=== PATIENT | female | born 1975 | race Caucasian/White ===

== ENCOUNTER → 2019-05-25 | Outpatient (CLI) | payer OTHER ==
[2019-05-25 16:13] LABS: Basophils % (A) 0 %; Eosinophils # (A) 0.1 k/uL (0-0.7); Eosinophils % (A) 1 %; HCT 37.1 % (34.0-46.0); HGB 12.2 gm/dL (11.4-16.0); Lymphocytes % (A) 28 %; MCH 27.1 pg (25.0-35.0); MCHC 32.7 g/dL (31.0-37.0); MCV 82.7 fL (80.0-100.0); Mean Platelet Volume 7.4; Monocytes # (A) 0.4 k/uL (0-1.0); Monocytes % (A) 6 %; Neutrophils # (A) 4.6 k/uL (1.3-7.7); Neutrophils % (A) 63 %; Platelet Count 265 k/uL (150-450); RBC 4.49 m/uL (3.80-5.40); RDW 13.7 % (11.5-15.5); WBC 7.2 k/uL (3.8-10.6)
== END | disposition home or self-care (01) ==
LOC: LABPAT 15:24
PROVIDERS: ATTEND Obstetrics & Gynecology
DX: Z01.812 Encounter for preprocedural laboratory examination (principal); N92.0 Excessive and frequent menstruation with regular cycle; D25.9 Leiomyoma of uterus, unspecified
CPT/HCPCS: 36415; 85025

== ENCOUNTER 2019-06-08 07:42 | Day surgery (SDC) | payer OTHER ==
[2019-06-01 10:54] VITALS: BMI 34.7
[~2019-06-08 07:42] MED LIST: DEXAMETHASONE SOD PHOSPHATE 10 MG/ML 1 ML VIAL IV ONE; HYDROmorphone 0.5 MG/0.5 ML SYRINGE IVP PRN; LACTATED RINGERS 1,000 ML IV SCH; LIDOCAINE 1% 20 ML VIAL (10MG/ML) FOR IV START INTRADERMA PRN; MIDAZOLAM 2 MG/2 ML VIAL IV PRN; ONDANSETRON 4 MG/2 ML VIAL IVP ONE; Pre Op ABX Message 1 EACH MISC MISCELLANE ONE; SCOPOLAMINE 1.5MG/72HR PATCH TRANSDERM ONE
[2019-06-08] MEDS ORDERED: PROPOFOL 10 MG/ML 20 ML VIAL IV ONE (08:34)
[2019-06-08] MEDS ORDERED: fentaNYL (PF) 50 MCG/ML 2 ML AMP ONE (08:34)
[2019-06-08] MEDS ORDERED: LIDOCAINE 1% INJ 10MG/ML (20 ML MDV) ONE (08:34)
[2019-06-08] MEDS ORDERED: MIDAZOLAM 2 MG/2 ML VIAL ONE (08:34)
--- NOTE | 2019-06-08 09:11 | P.OP ---
Date of Procedure: 06/08/19 Preoperative Diagnosis: Menorrhagia, fibroid uterus Postoperative Diagnosis: Same, normal-appearing endometrial cavity Procedure(s) Performed: Hysteroscopy, NovaSure endometrial ablation Surgeon: Paola Santos Estimated Blood Loss (ml): 5 IV fluids (ml): 300 Urine output (ml): 25 Pathology: none sent Condition: stable Disposition: PACU Operative Findings: Essentially normal-appearing endometrial cavity. Slightly misshapen fibroid uterus to pelvic exam. Description of Procedure: Patient is brought to the operating suite where a general anesthetic is administered without difficulty. The appropriate timeout was performed to assure proper patient and procedural identification. Urine hCG is negative, antibiotics are not deemed necessary. Examination under anesthesia reveals an anteverted uterus that is slightly irregular in contour, negative adnexa bilaterally. The perineal body, cervix, and vagina are all prepped and draped in the usual sterile fashion. Bladder is drained for 25 mL of clear yellow urine. Weighted speculum was placed into the vagina. The anterior lip of the cervix is grasped with an Allis clamp. The uterus sounds to a depth of 9.5 cm in the anteverted position. The cervix was gently and systematically dilated with Primitivo dilators. The hysteroscope was introduced and the cavity is distended with sterile saline. Inspection of the cavity reveals shaggy-appearing tissue, no fibroids, no polyps, no defects. Hysteroscope was removed. NovaSure wand is then placed and seated properly. Uterine length of 6.5 cm, width of 4.2 cm is calibrated to the machine and the machine is enabled. For 53 seconds and a power the 150 W the procedure is carried out. When the machine shuts off the wand is reduced and removed. Hysteroscope was once again introduced. The cavity appears uniformly blanched. Hysteroscope was removed. All sponge needle and enhancement counts are correct. Patient is brought back to the recovery room in very good condition with stable vital signs including a blood pressure of 110/54, pulse 80. All firm as is given in the recovery room after the procedure, patient has history of an untoward effect to Toradol administration. Written instructions are provided. She will follow-up with me in the office in 2 weeks for postoperative check.
[2019-06-08] MEDS ORDERED: ACETAMINOPHEN IV (For NPO) 1,000 MG/100 ML VIAL IVPB ONE (09:15)
[2019-06-08 09:17] VITALS: TEMP 97.2
[2019-06-08] MEDS ORDERED: IBUPROFEN 200 MG TAB PO ONE (10:35)
[2019-06-08 10:58] VITALS: BP 121/76; PULSE 83; RESP 16
== END 2019-06-08 11:10 | disposition home or self-care (01) ==
LOC: OR 07:42
PROVIDERS: ATTEND Obstetrics & Gynecology
DX: N92.0 Excessive and frequent menstruation with regular cycle (principal); D25.9 Leiomyoma of uterus, unspecified; Z88.6 Allergy status to analgesic agent; Z90.49 Acquired absence of other specified parts of digestive tract; Z90.89 Acquired absence of other organs; Z98.84 Bariatric surgery status; Z98.51 Tubal ligation status; Z87.891 Personal history of nicotine dependence; Z80.8 Family history of malignant neoplasm of other organs or systems
CPT/HCPCS: 81025; 58563; J2250; J1100; J2405; J2001; J3010; J0131; J2704

== ENCOUNTER → 2019-08-25 | Outpatient (CLI) | payer OTHER ==
--- NOTE | 2019-08-25 14:08 | FL ---
EXAMINATION TYPE: FL barium swallow DATE OF EXAM: 08/25/2019 CLINICAL HISTORY: Gastric lap band placed into thousand 4. Right upper quadrant pain and nausea for 2 months. However when the patient describes and identifies the pain is located in the right lower linden drant. TECHNIQUE: A single contrast esophagram is performed utilizing thin barium. A total of 1 minute and 52 seconds of fluoroscopic time was utilized during procedure. 34 fluoroscopic images were saved. COMPARISON: None FINDINGS: A research and development manager image demonstrates a normal Phi angle 45 degrees. The esophagus shows normal motili ty and emptying into the stomach. There is prompt passage of contrast from the distal esophagus into the stomach with no gastroesophageal reflux seen. No evidence of hiatal hernia or stricture noted. IMPRESSION: No evidence of gastric lap band slippage or obstruction. Under fluoroscopy the patient d escribes pain in the right lower quadrant.
[2019-08-25 14:12] VITALS: BP 132/84; PULSE 82; RESP 16; TEMP 98.3; BMI 34.2
--- NOTE | 2019-08-25 14:43 | P.BASOAP ---
Subjective Progress Note Date: 08/25/19 Principal diagnosis: Abdominal pain 43-year-old female known to our service. She has not seen me in many years. She had her lap band placed at [facility] approximately 15 years ago. She contacted us this morning complaining of upper abdominal pain. Some nausea but no vomiting. No dysphasia. Denies fevers or chills. No diarrhea or constipation. No rectal bleeding or melena. Patient was concerned the pain may be related to her lap band. A fluoroscopy esophagram was ordered when she arrived. That study was reviewed. No definite abnormalities are identified. Pain is actually being described in the right lower and right upper quadrants. History of previous cholecystectomy. Pain began approximately 2 days ago. Pain does seem to be aggravated by drinking more liquids. Otherwise food does not seem to be causing any difficulty. Objective - Vital Signs Vital signs: Vital Signs Temp 98.3 F 08/25/19 14:07 Pulse 82 08/25/19 14:07 Resp 16 08/25/19 14:07 BP 132/84 08/25/19 14:07 Pulse Ox Intake & Output 08/24/19 08/25/19 08/25/19 18:59 06:59 18:59 Weight 92.079 kg - Exam Abdomen: Soft, nondistended, tenderness right mid and lower quadrants, no rebound or guarding Assessment/Plan (1) Right sided abdominal pain Narrative/Plan: 43-year-old female with pain in right upper and right lower quadrants. Rule out appendicitis versus other etiologies. Patient with history of previous cholecystectomy. We'll perform CT abdomen and pelvis with contrast. Further recommendations to follow. She and I discussed emptying the band however she is having no dysphagia or vomiting. She would prefer not to empty the band unless necessary. Plan: Date: 08/25/19 Initial Weight: 151.953 kg Initial BMI: 56.6 Current Weight: 92.079 kg Current BMI: 34.2 Type of Surgery: Total Volume in Band: Previous Volume: Volume Removed: Volume Added: Band Size:
== END | disposition home or self-care (01) ==
LOC: BARWHC3 12:20
PROVIDERS: ATTEND Surgery
DX: R10.11 Right upper quadrant pain (principal); R10.31 Right lower quadrant pain; Z90.49 Acquired absence of other specified parts of digestive tract
CPT/HCPCS: 74220; G0463; 99211

== ENCOUNTER → 2019-08-25 | Outpatient (CLI) | payer OTHER ==
--- NOTE | 2019-08-25 18:58 | CT ---
EXAMINATION TYPE: CT abdomen pelvis wo con DATE OF EXAM: 08/25/2019 COMPARISON: None HISTORY: abdominal pain CT DLP: 984 mGycm Automated exposure control for dose reduction was used. Multiple axial sections were obtained from the diaphragm to the floor the pelvis with oral contrast o nly. Lung bases are clear. There is no pleural effusion. There is bariatric gastric surgery. Liver is inta ct. Spleen is intact. There is no pancreatic mass. There are clips from cholecystectomy. There is no adrenal mass. Kidneys show normal size and contour.. There is no hydronephrosis. Ureters are not dilated. There is no retroperitoneal adenopathy. Bladder distends smoothly. Uterus is antever maycol. There is no free fluid in the pelvis. There is no inguinal hernia. Appendix is not seen. No sign of thickened appendix. There is no mesenteric edema. There is no ascites or free air. There is no sign of a bowel obstructio n. Lumbar vertebra have normal alignment. Disc spaces are fairly normal. There is slight narrowing at L4-5 disc. Bony pelvis appears intact. There is no evidence of a fracture. Hip joints appear normal. IMPRESSION: Negative CT scan abdomen and pelvis.
== END | disposition home or self-care (01) ==
LOC: RADCTMAIN 15:41
PROVIDERS: ATTEND Surgery
DX: R10.9 Unspecified abdominal pain (principal)
CPT/HCPCS: 74176

== ENCOUNTER 2019-09-14 09:28 | Day surgery (SDC) | payer OTHER ==
[2019-09-09 10:52] VITALS: BMI 34.2
[~2019-09-14 09:28] MED LIST changes: -DEXAMETHASONE SOD PHOSPHATE 10 MG/ML 1 ML VIAL IV ONE; -HYDROmorphone 0.5 MG/0.5 ML SYRINGE IVP PRN; +LIDOCAINE 1% (10MG/ML) FOR IV START INTRADERMA PRN; -LIDOCAINE 1% 20 ML VIAL (10MG/ML) FOR IV START INTRADERMA PRN; -MIDAZOLAM 2 MG/2 ML VIAL IV PRN; -ONDANSETRON 4 MG/2 ML VIAL IVP ONE; -Pre Op ABX Message 1 EACH MISC MISCELLANE ONE; -SCOPOLAMINE 1.5MG/72HR PATCH TRANSDERM ONE
[2019-09-14 09:58] VITALS: RESP 16; TEMP 98.4
[2019-09-14] MEDS ORDERED: PROPOFOL 10 MG/ML 20 ML VIAL IV ONE (10:57)
[2019-09-14] MEDS ORDERED: LIDOCAINE 1% INJ 10MG/ML (20 ML MDV) ONE (10:57)
--- NOTE | 2019-09-14 11:02 | P.GSHP ---
History of Present Illness H&P Date: 09/14/19 Chief Complaint: Abdominal pain Patient here today for upper endoscopy has had complaints of upper abdominal and right upper quadrant pain. Pain is stabbing at times. Was having some dysphagia but that has resolved. No significant reflux symptoms. She has a lap band placed many years ago. Past Medical History Additional Past Medical History / Comment(s): Lap Band., Past hx heavy periods & uterine fibroids (uterine ablation), pericarditis, hx htn (no problem now), "arrythmia when young", having some abdominal pain and difficulty swallowing. History of Any Multi-Drug Resistant Organisms: None Reported Past Surgical History: Bariatric Surgery, Section, Cholecystectomy, Tonsillectomy, Uterine Ablation Additional Past Surgical History / Comment(s): lap band 2004, D&C x4, EGD, wisdom teeth, Uterine Ablation (May 2019) Past Anesthesia/Blood Transfusion Reactions: Previous Problems w/ Anesthesia, Motion Sickness Additional Past Anesthesia/Blood Transfusion Reaction / Comment(s): woke up during wisdom teeth removal Past Psychological History: No Psychological Hx Reported Smoking Status: Former smoker Past Alcohol Use History: None Reported Additional Past Alcohol Use History / Comment(s): smoked approx 7 yrs 1 pack/week quit age 24 Past Drug Use History: None Reported - Past Family History Brother(s) Family Medical History: Cancer Additional Family Medical History / Comment(s): brain ca Sister(s) Family Medical History: Cancer, Thyroid Disorder Additional Family Medical History / Comment(s): skin cancer Medications and Allergies Home Medications Medication Instructions Recorded Confirmed Type Vitamin B Complex 1 each PO DAILY 06/01/19 09/14/19 History Cholecalciferol [Vitamin D3 (25 10,000 unit PO DAILY 09/09/19 09/14/19 History Mcg = 1000 Iu)] Magnesium 350 mg PO DAILY 09/09/19 09/14/19 History Naproxen Sodium [Aleve] 440 mg PO ONCE PRN 09/09/19 09/14/19 History Vitamin C/Biotin [Hair, Skin and 1 tab PO DAILY 09/09/19 09/14/19 History Nails] Allergies Allergy/AdvReac Type Severity Reaction Status Date / Time ketorolac [From Toradol] Allergy made me Verified 09/09/19 10:29 "jittery" Surgical - Exam Vital Signs Temp Pulse Resp BP Pulse Ox 98.4 F 80 16 134/61 100 09/14/19 09:57 09/14/19 09:57 09/14/19 09:57 09/14/19 09:57 09/14/19 09:57 Physical exam: General: Well-developed, well-nourished HEENT: Normocephalic, sclerae nonicteric Abdomen: Nontender, nondistended Extremities: No edema Neuro: Alert and oriented Assessment and Plan (1) Epigastric pain Narrative/Plan: Will proceed with upper endoscopy. Current Visit: Yes Status: Acute Code(s): R10.13 - EPIGASTRIC PAIN SNOMED Code(s): 58702861
--- NOTE | 2019-09-14 11:11 | P.PCN ---
Date of Procedure: 09/14/19 Procedure(s) Performed: Preoperative Dx: Abdominal pain Postoperative Dx: Mild gastritis Procedure: EGD with Bx Anesthesia: Sedation Endoscopist: Dr. Juarez Specimens: Antrum Endoscopic Procedure: The patient was on the endoscopy table in the left decubitus position. The Olympus gastroscope was inserted into the oropharynx and passed under direct visualization to the region of the third portion of the duodenum. From that point the scope was slowly withdrawn inspecting all surfaces carefully. There were no neoplastic inflammatory or polypoid lesions throughout the duodenum. The pylorus was widely patent. The stomach was carefully inspected. There was gastritis. A biopsy of the antrum took place to rule out H. pylori. Retroflexion revealed a normal band plication. There was no evidence of erosion or prolapse. The scope was able to pass through the band site without difficulty. The esophagus was then carefully examined. There were no neoplastic inflammatory or polypoid lesions throughout the visualized esophagus. The patient was then taken to the recovery room in stable condition per anesthesia guidelines. Recommendations: Await biopsy results. Continue workup abdominal pain. We'll consider emptying the patient's band given her ongoing symptoms. Not convinced that will have any impact however given the primary pain being in the right upper quadrant.
[2019-09-14 11:30] VITALS: BP 128/78; PULSE 76
== END 2019-09-14 11:54 | disposition home or self-care (01) ==
LOC: ORWHC2ENDO 09:28
PROVIDERS: ATTEND Surgery
DX: K29.50 Unspecified chronic gastritis without bleeding (principal); I10 Essential (primary) hypertension; Z98.84 Bariatric surgery status; Z90.49 Acquired absence of other specified parts of digestive tract; Z90.89 Acquired absence of other organs; Z98.890 Other specified postprocedural states; Z98.818 Other dental procedure status; Z87.891 Personal history of nicotine dependence; Z79.899 Other long term (current) drug therapy; Z88.6 Allergy status to analgesic agent; Z98.51 Tubal ligation status; Z80.8 Family history of malignant neoplasm of other organs or systems
CPT/HCPCS: 81025; 88305; 43239; J2001; J2704

== ENCOUNTER → 2021-06-21 | Outpatient (CLI) | payer BC, OTHER ==
--- NOTE | 2021-06-21 14:11 | FL ---
SINGLE CONTRAST ESOPHAGRAM: CLINICAL HISTORY: 45-year-old female. R13.10, dysphagia TECHNIQUE: Single contrast exam utilizing thin barium. Total fluoroscopy time: 54 seconds. Total images: 22. FINDINGS: The patient swallowed oral contrast without difficulty or delay. There is normal course, caliber, and overall motility of the thoracic esophagus. There is prompt passage of contrast across the GE juncti on. LAP-BAND device is visualized and is appropriately positioned. There is prompt passage across the lap band without any significant restriction. IMPRESSION: Patent and appropriately positioned lap band. No significant restriction is seen to thin barium.
== END | disposition home or self-care (01) ==
LOC: RADUSWWP 13:13
PROVIDERS: ATTEND Surgery
DX: R13.10 Dysphagia, unspecified (principal)
CPT/HCPCS: 74220

== ENCOUNTER → 2021-07-24 | Outpatient (CLI) | payer BC, OTHER ==
[2021-07-24 19:16] LABS: Basophils # (A) 0.04 X 10*3/uL (0.00-0.10); Basophils % (A) 0.6 %; Eosinophils % (A) 1.4 %; HCT 39.9 % (37.2-46.3); HGB 12.4 g/dL (12.0-15.0); Lymphocytes # (A) 2.07 X 10*3/uL (0.90-5.00); MCH 26.8 pg (27.0-32.0); MCHC 31.1 g/dL (32.0-37.0); MCV 86.2 fL (80.0-97.0); Mean Platelet Volume 11.8 fL (9.5-12.2); Monocytes # (A) 0.54 X 10*3/uL (0.20-1.00); Monocytes % (A) 7.6 %; Neutrophils # (A) 4.38 X 10*3/uL (1.80-7.70); Neutrophils % (A) 61.1 %; Platelet Count 245 X 10*3/uL (140-440); RBC 4.63 X 10*6/uL (4.10-5.20); RDW 14.6 % (11.5-14.5); WBC 7.15 X 10*3/uL (4.50-10.00)
[2021-07-24 19:24] LABS: ALT 8 U/L (8-44); AST 13 U/L (13-35); African American GFR (CKD) 129.2 (60.0-200.0); Albumin 3.7 g/dL (3.8-4.9); Albumin/Globulin Ratio 1.68 (1.60-3.17); Alkaline Phosphatase 32 U/L (41-126); BUN/Creat Ratio 16.92 Ratio (12.00-20.00); Blood Urea Nitrogen 9.6 mg/dL (9.0-27.0); Calcium 8.7 mg/dL (8.7-10.3); Carbon Dioxide 25.6 mmol/L (20.0-27.5); Chloride 105 mmol/L (96-109); Globulin 2.2 g/dL (1.6-3.3); Glucose 81 mg/dL (70-110); Non-African American GFR(CKD) 111.5 (60.0-200.0); Potassium 4.2 mmol/L (3.5-5.5); Sodium 138 mmol/L (135-145); Total Bilirubin <0.20 mg/dL (0.30-1.20); Total Protein 5.9 g/dL (6.2-8.2)
== END | disposition home or self-care (01) ==
LOC: LABPAT 11:31
PROVIDERS: ATTEND Surgery
DX: Z01.812 Encounter for preprocedural laboratory examination (principal)
CPT/HCPCS: 36415; 80053; 85025; 93005

== ENCOUNTER 2021-08-21 10:02 | Day surgery (SDC) | payer BC, OTHER ==
[2021-08-14 12:37] VITALS: BMI 28.7
--- NOTE | 2021-08-21 09:58 | P.GSHP ---
History of Present Illness H&P Date: 08/21/21 Chief Complaint: Band intolerance 45-year-old female known to our service. Patient here today for elective lap band removal. Patient has had complaints of upper abdominal pain and intermittent dysphagia and vomiting. Previous EGD and upper GI shows no definite abnormalities. Past Medical History Past Medical History: Hypertension Additional Past Medical History / Comment(s): Lap Band ., hx heavy periods & uterine fibroids with uterine ablation, pericarditis (in her 20's)., htn resolved with wt loss, vegetarian., states food backs up and occasional stomach pain. History of Any Multi-Drug Resistant Organisms: None Reported Past Surgical History: Bariatric Surgery, Section, Cholecystectomy, Tonsillectomy, Uterine Ablation Additional Past Surgical History / Comment(s): lap band 2004, D&C x4, EGD, wisdom teeth, Uterine Ablation (May 2019) Past Anesthesia/Blood Transfusion Reactions: Previous Problems w/ Anesthesia, Motion Sickness Additional Past Anesthesia/Blood Transfusion Reaction / Comment(s): . Past Psychological History: No Psychological Hx Reported Smoking Status: Former smoker Past Alcohol Use History: None Reported Additional Past Alcohol Use History / Comment(s): smoked approx 7 yrs 1 pack/week quit age 24 Past Drug Use History: None Reported - Past Family History Brother(s) Family Medical History: Cancer Additional Family Medical History / Comment(s): brain ca Sister(s) Family Medical History: Cancer, Thyroid Disorder Additional Family Medical History / Comment(s): skin cancer Medications and Allergies Home Medications Medication Instructions Recorded Confirmed Type Vitamin B Complex 1 each PO DAILY 06/01/19 08/14/21 History Cholecalciferol [Vitamin D3 (25 10,000 unit PO DIRECTED 09/09/19 08/14/21 History Mcg = 1000 Iu)] Ascorbic Acid [Vitamin C] 1,000 mg PO DAILY 08/14/21 08/14/21 History Biotin 10,000 mcg PO DAILY 08/14/21 08/14/21 History Calcium/Magnesium/Zinc 1 each PO DAILY 08/14/21 08/14/21 History [Ilzwcqw-Dmeynbufj-Joiq Tablet] Elderberry 1 dose PO DAILY 08/14/21 History L.acidoph,Paracasei, B.lactis 1 each PO DAILY 08/14/21 08/14/21 History [Probiotic] Multivitamin Supplement Liquid 1 dose PO DAILY 08/14/21 History Potassium 99 mg PO DAILY 08/14/21 History Allergies Allergy/AdvReac Type Severity Reaction Status Date / Time ketorolac [From Toradol] Allergy made me Verified 08/14/21 11:48 "jittery" Surgical - Exam Physical exam: General: Well-developed, well-nourished HEENT: Normocephalic, sclerae nonicteric Abdomen: Nontender, nondistended Extremities: No edema Neuro: Alert and oriented Assessment and Plan (1) Epigastric pain Narrative/Plan: Will proceed with laparoscopic lap band removal, possible open. The risks of bleeding, infection, stenosis, stricture, leak, abscess, fistula formation, peritonitis, weight gain, reflux, vomiting, conversion to an open procedure, RI, PE, DVT, and were discussed. The patient understands and wishes to proceed. Status: Acute Code(s): R10.13 - EPIGASTRIC PAIN SNOMED Code(s): 55276482
[~2021-08-21 10:02] MED LIST changes: +DEXAMETHASONE SOD PHOSPHATE 4 MG/ML 1 ML VIAL IV ONE; +HYDROmorphone 0.5 MG/0.5 ML SYRINGE IVP PRN; +ONDANSETRON 4 MG/2 ML VIAL IVP ONE; +SCOPOLAMINE 1.5MG/72HR PATCH TRANSDERM ONE
[2021-08-21] MEDS ORDERED: SUCCINYLCHOLINE CHLORIDE 100 MG/5 ML SYR IV ONE (11:45)
[2021-08-21] MEDS ORDERED: NEOSTIGMINE 1 MG/ML 10 ML VIAL ONE (11:45)
[2021-08-21] MEDS ORDERED: GLYCOPYRROLATE 0.2 MG/ML 2 ML VIAL ONE (11:45)
[2021-08-21] MEDS ORDERED: MIDAZOLAM 2 MG/2 ML VIAL ONE (11:45)
[2021-08-21] MEDS ORDERED: ROCURONIUM 10 MG/ML (5 ML VIAL) IV ONE (11:45)
[2021-08-21] MEDS ORDERED: fentaNYL (PF) 50 MCG/ML 2 ML AMP ONE (11:45)
[2021-08-21] MEDS ORDERED: LIDOCAINE 1% INJ 10MG/ML (20 ML MDV) ONE (11:45)
[2021-08-21] MEDS ORDERED: PROPOFOL 10 MG/ML 20 ML VIAL IV ONE (11:45)
[2021-08-21] MEDS ORDERED: BUPIVACAINE (PF) 0.25% 30 ML VIAL SQ ONE ×2 (12:23→13:02)
[2021-08-21 13:22] VITALS: TEMP 97.3
[2021-08-21] MEDS ORDERED: HYDROcodone/APAP 5-325MG 1 EACH TAB PO PRN (13:23)
[2021-08-21] MEDS ORDERED: NALOXONE 0.4 MG/ML 1 ML VIAL IV PRN (13:23)
--- NOTE | 2021-08-21 13:29 | P.OP ---
Date of Procedure: 08/21/21 Procedure(s) Performed: PREOPERATIVE DIAGNOSIS: Band intolerance/abdominal pain POSTOPERATIVE DIAGNOSIS: Same PROCEDURE: Laparoscopic lap band removal with lysis of adhesions SURGEON: Ann EBL: Minimal ANESTHESIA: General COMPLICATIONS: None OPERATIVE PROCEDURE: The patient was brought and placed on the operating room table in the supine position. The patient was placed under general anesthesia at that time. The patient was then placed in lithotomy. The abdomen was prepped and draped in the usual sterile fashion. The previous left lateral upper quadrant port incision was localized and then incised using a scalpel. The port was easily excised using electrocautery. Entrance into the peritoneal cavity occurred using a 5 mm optical trocar through a new incision in the epigastrium. Insufflation took place to 15 mmHg. A right subxiphoid 5 mm trocar was placed. This was then removed and the medium Angelica hook was used to elevate the left lobe of the liver anteriorly. An additional 5 mm trocar was placed under direct visualization in the right upper quadrant. A 15 mm trocar was then placed to the previous port incision site in the left upper quadrant. The patient had adhesions between the omentum and the abdominal wall. These were present in both the left upper and right upper quadrants. Patient had recent complaints of pain in the right upper quadrant. These adhesions were divided using electrocautery in the hopes that this would help with the patient's right upper quadrant discomfort. Some of the adhesions in the left upper quadrant were lysed as well. The band was inspected. There was some adherence to the liver. There were adhesions to the band in the buccal that were lysed using electrocautery. The band was then cut using the laparoscopic royal. The band was then removed in 2 portions through the 15 mm trocar site. The band itself was somewhat adherent to the serosa of the stomach and the capsule. The Kitner was used to help free up some of these loose adhesions. The stomach itself was inspected and revealed no evidence of erosion or prolapse. The fascia at the 15 mm site was closed using a [id number] 0 Vicryl stitch. The subcutaneous tissues at the port site was closed using a 3-0 Vicryl suture. The skin at all 4 incision sites were closed using 4-0 Monocryl sutures. Skin glue was then applied. DISPOSITION: Stable to recovery room
[2021-08-21 15:25] VITALS: PULSE 90; RESP 16
[2021-08-21 15:50] VITALS: BP 111/75
== END 2021-08-21 16:19 | disposition home or self-care (01) ==
LOC: OR 10:02
PROVIDERS: ATTEND Surgery
DX: K95.09 Other complications of gastric band procedure (principal); K66.0 Peritoneal adhesions (postprocedural) (postinfection); Z87.42 Personal history of other diseases of the female genital tract; I10 Essential (primary) hypertension; Z98.891 History of uterine scar from previous surgery; Z90.49 Acquired absence of other specified parts of digestive tract; Z98.890 Other specified postprocedural states; Z87.891 Personal history of nicotine dependence; Z80.8 Family history of malignant neoplasm of other organs or systems; Z88.6 Allergy status to analgesic agent
CPT/HCPCS: 81025; 43774; J2250; J1100; J2710; J0690; J2405; J2001; J3010; J0330; J2704; J1170

== ENCOUNTER → 2021-09-05 | Outpatient (CLI) | payer BC, OTHER ==
[2021-09-05 14:04] VITALS: BP 125/74; PULSE 81; RESP 16; TEMP 97.9; BMI 28.2
--- NOTE | 2021-09-05 14:22 | P.BASOAP ---
Subjective Progress Note Date: 09/05/21 Principal diagnosis: Morbid obesity Patient returns after recent laparotomy and removal. Doing well at this time. Had some mild discomfort at the larger incision site. No nausea or vomiting. The patient's right-sided pain has improved slightly. Objective - Vital Signs Vital signs: Vital Signs Temp 97.9 F 09/05/21 14:01 Pulse 81 09/05/21 14:01 Resp 16 09/05/21 14:01 BP 125/74 09/05/21 14:01 Pulse Ox Intake & Output 09/04/21 09/05/21 09/05/21 18:59 06:59 18:59 Weight 75.75 kg - Exam Abdomen: Soft, nondistended, incisions clean and dry Assessment/Plan (1) Right sided abdominal pain Narrative/Plan: Patient doing better at this time. Continue monitoring her caloric intake. Dale guerra will follow up with us as needed at this point. Plan: Date: 09/05/21 Initial Weight: 151.953 kg Initial BMI: 56.6 Current Weight: 75.75 kg Current BMI: 28.2 Type of Surgery: Total Volume in Band: Previous Volume: Volume Removed: Volume Added: Band Size:
== END ==
LOC: BARWHC3 13:53
PROVIDERS: ATTEND Surgery
DX: E66.01 Morbid (severe) obesity due to excess calories (principal); Z88.6 Allergy status to analgesic agent; Z87.891 Personal history of nicotine dependence; Z68.28 Body mass index [BMI] 28.0-28.9, adult
CPT/HCPCS: 99211